=== PATIENT | male | born 1990 | race Caucasian/White ===

== ENCOUNTER 2020-06-28 13:22 | Emergency (ER) | payer SELFPAY ==
[~2020-06-28] VITALS: Wt 74.8 kg
== END 2020-06-28 16:14 | disposition home or self-care (01) ==
LOC: ED 13:22
DX: S93.401A Sprain of unspecified ligament of right ankle, initial encounter (principal); F17.200 Nicotine dependence, unspecified, uncomplicated; X58.XXXA Exposure to other specified factors, initial encounter; Y93.89 Activity, other specified; Y92.89 Other specified places as the place of occurrence of the external cause; Y99.8 Other external cause status